=== PATIENT | female | born 1930 | race Caucasian/White ===

== ENCOUNTER 2019-05-26 18:28 | Emergency (ER) | payer MEDICARE, OTHER ==
[~2019-05-26] VITALS: Ht 165.1 cm; Wt 59.0 kg
[~2019-05-26 18:28] MED LIST: ACET325 PO; ALUMAG30SU PO; AMLO5 PO; ASPI325 PO; ATOR20 PO; BAYER CHEWABLE81 MG PO; BISA10S PR; CARV3.125 PO; CARV6.25 PO; CLOP75 PO; LEVSOD75 PO; LEVSOD88 PO; LOSA25 PO; METO25 PO; PANT40; POTCHL10ER; POTCHL20ER PO
== END 2019-05-26 19:59 | disposition home or self-care (01) ==
LOC: ER 18:28
DX: S80.02XA Contusion of left knee, initial encounter (principal); I10 Essential (primary) hypertension; W05.0XXA Fall from non-moving wheelchair, initial encounter
CPT/HCPCS: 73502; 73562-LT; 99283-25